=== PATIENT | male | born 1970 | race Caucasian/White ===

== ENCOUNTER 2020-10-30 07:17 | Day surgery (SDC) | payer OTHER, SELFPAY ==
[~2020-10-30] VITALS: Ht 175.3 cm; Wt 79.4 kg
[2020-10-30] MEDS ORDERED: MIDAZOLAM HCL 5 MG/5 ML VIAL ONE ×2 (07:29→09:11)
[2020-10-30] MEDS ORDERED: fentaNYL CITRATE/PF 100 MCG/2 ML AMP ONE (07:29)
[2020-10-30 11:51] VITALS: BP_SYST 112
== END 2020-10-30 10:45 | disposition home or self-care (01) ==
LOC: SDS 07:17 → SMU 07:20 → SDS 10:45
PROVIDERS: ATTEND Internal Medicine
DX: Z12.11 Encounter for screening for malignant neoplasm of colon (principal); K64.8 Other hemorrhoids; Z20.822 Contact with and (suspected) exposure to COVID-19; Z79.899 Other long term (current) drug therapy
CPT/HCPCS: 45378; 99152; G0378; J2250; J3010; U0003